=== PATIENT | male | born 1970 | race Caucasian/White ===

== ENCOUNTER 2017-10-18 16:04 | Emergency (ER) | payer MEDICAID ==
[~2017-10-18] VITALS: Ht 190.5 cm; Wt 112.0 kg
[~2017-10-18 16:04] MED LIST: HYDR-565 PO; LISI40TA4 PO; OMEP20TA5 PO; TRAZ-143 PO
[2017-10-18 16:22] LABS: BASOPHILS % (AUTO) 0.4 % (0-1); EOSINOPHILS # (AUTO) 0.1 X10'3 (0-0.9); EOSINOPHILS % (AUTO) 0.8 % (0-6); HEMOGLOBIN 16.4 g/dl (14.0-17.9); LYMPHOCYTES % (AUTO) 18.3 % (21-51); MEAN CORPUSCULAR HEMOGLOBIN 31.4 PG (27.0-31.0); MEAN CORPUSCULAR HGB CONC 34.1 % (33.0-36.5); MEAN PLATELET VOLUME 9.4 FL (7.4-10.4); MONOCYTES # (AUTO) 0.7 X10'3 (0-0.9); MONOCYTES % (AUTO) 6.7 % (2-12); NEUTROPHILS % (AUTO) 73.8 % (42-75); PLATELET COUNT 227 X10'3 (140-440); RED BLOOD COUNT 5.21 X10'6 (4.70-6.10); WHITE BLOOD COUNT 10.9 X10'3 (4.5-11.0)
[2017-10-18 16:39] LABS: ALANINE AMINOTRANSFERASE 211 U/L (12-78); ALBUMIN 4.1 G/DL (3.4-5.0); ALBUMIN/GLOBULIN RATIO 1.1 (1.1-1.5); ALKALINE PHOSPHATASE 102 IU/L (46-116); ANION GAP 11 (8-16); ASPARTATE AMINO TRANSFERASE 234 U/L (10-37); BLOOD UREA NITROGEN 17 MG/DL (7-18); BUN/CREATININE RATIO 12.8 (5.4-32.0); CALCIUM 9.1 MG/DL (8.5-10.1); CHLORIDE 104 MMOL/L (99-107); CREATININE 1.33 MG/DL (0.60-1.10); GLUCOSE 118 MG/DL (70-104); POTASSIUM 4.3 MMOL/L (3.5-5.1); SODIUM 142 MMOL/L (135-145); TOTAL CARBON DIOXIDE 27.3 MMOL/L (24-32); TOTAL PROTEIN 7.9 G/DL (6.4-8.2); eGFR 58 ML/MIN
[2017-10-18 16:42] LABS: PARTIAL THROMBOPLASTIN TIME 25 SECONDS (22-32); PROTHROMBIN TIME 10.7 SECONDS (9.0-12.0)
[2017-10-18] MEDS ORDERED: ondansetron 4mg rapidly disintigrating tab PO ONE (17:40)
[2017-10-18] MEDS ORDERED: aspirin 325mg tablet PO ONE (17:40)
[2017-10-18] MEDS ORDERED: mag hydrox/Alum hydrox/simeth 30ml oral suspension PO ONE (17:40)
[2017-10-18] MEDS ORDERED: ibuprofen tablet 400 MG TABLET PO ONE (17:40)
[2017-10-18 19:46] VITALS: BP 119/71
== END 2017-10-18 19:49 | disposition home or self-care (01) ==
LOC: ER 16:05
DX: R07.9 Chest pain, unspecified (principal); I10 Essential (primary) hypertension; G89.29 Other chronic pain; K21.9 Gastro-esophageal reflux disease without esophagitis; F17.200 Nicotine dependence, unspecified, uncomplicated; Z79.899 Other long term (current) drug therapy
CPT/HCPCS: 36415; 71045; 80053; 84484; 85025; 85610; 85730; 93005; 99285

== ENCOUNTER 2017-10-19 11:16 | Inpatient (IN) | payer MEDICAID ==
[~2017-10-19] VITALS: Ht 190.5 cm; Wt 138.6 kg
[2017-10-19] MEDS ORDERED: ondansetron 4mg rapidly disintigrating tab PO ONE (14:30)
[2017-10-19 15:09] LABS: BASOPHILS % (AUTO) 0.3 % (0-1); EOSINOPHILS # (AUTO) 0.1 X10'3 (0-0.9); HEMATOCRIT 46.4 % (42.0-52.0); LYMPHOCYTES # (AUTO) 0.5 X10'3 (1.1-4.8); LYMPHOCYTES % (AUTO) 6.5 % (21-51); MEAN CORPUSCULAR HEMOGLOBIN 31.7 PG (27.0-31.0); MEAN CORPUSCULAR HGB CONC 34.5 % (33.0-36.5); MEAN CORPUSCULAR VOLUME 91.9 FL (78-98); MEAN PLATELET VOLUME 9.2 FL (7.4-10.4); MONOCYTES # (AUTO) 0.8 X10'3 (0-0.9); NEUTROPHILS # (AUTO) 6.5 X10'3 (1.8-7.7); NEUTROPHILS % (AUTO) 82.2 % (42-75); PLATELET COUNT 227 X10'3 (140-440); RED BLOOD COUNT 5.05 X10'6 (4.70-6.10); RED CELL DISTRIBUTION WIDTH 14.1 % (11.5-14.5); WHITE BLOOD COUNT 7.9 X10'3 (4.5-11.0)
[2017-10-19 15:18] LABS: PROTHROMBIN TIME 10.6 SECONDS (9.0-12.0)
[2017-10-19 15:28] LABS: CLARITY,URINE CLEAR (Clear); COLOR,URINE YELLOW (Yellow); GLUCOSE, URINE NEGATIVE (Neg); KETONES,URINE NEGATIVE (Neg); LEUKOCYTE ESTERASE ,URINE NEGATIVE (Neg); NITRITES, URINE NEGATIVE (Neg); OCCULT BLOOD,URINE SMALL (Neg); PROTEIN,URINE NEGATIVE (Neg)
[2017-10-19 15:32] LABS: UA COLLECTION TYPE CLN CATCH MIDSTREAM
[2017-10-19 15:35] LABS: ALANINE AMINOTRANSFERASE 1363 U/L (12-78); ALBUMIN 4.1 G/DL (3.4-5.0); ALBUMIN/GLOBULIN RATIO 1.1 (1.1-1.5); ALKALINE PHOSPHATASE 158 IU/L (46-116); ANION GAP 10 (8-16); ASPARTATE AMINO TRANSFERASE 701 U/L (10-37); BILIRUBIN,TOTAL 4.9 MG/DL (0.1-1.0); BLOOD UREA NITROGEN 13 MG/DL (7-18); BUN/CREATININE RATIO 10.7 (5.4-32.0); CALCIUM 9.3 MG/DL (8.5-10.1); CHLORIDE 102 MMOL/L (99-107); CREATININE 1.22 MG/DL (0.60-1.10); ETHANOL < 0.010 GM/DL (0.0-0.010); GLUCOSE 108 MG/DL (70-104); LIPASE 551 U/L (73-393); SODIUM 139 MMOL/L (135-145); TOTAL CARBON DIOXIDE 27.3 MMOL/L (24-32); TOTAL PROTEIN 7.9 G/DL (6.4-8.2); TROPONIN I < 0.04 NG/ML (0.0-0.05); eGFR 64 ML/MIN
[2017-10-19 15:38] LABS: BACTERIA,URINE NONE SEEN /HPF (Neg); MUCUS STRANDS NONE SEEN /LPF (Neg); RBC,URINE 0-2 /HPF (0-2); SQUAMOUS EPITHELIAL CELL,UR FEW /LPF (FEW); URINE AMPHETAMINE SCREEN NEGATIVE (Neg); URINE BARBITUATE SCREEN NEGATIVE (Neg); URINE BENZODIAZEPINES SCREEN NEGATIVE (Neg); URINE CANNABINOID SCREEN NEGATIVE (Neg); URINE COCAINE SCREEN NEGATIVE (Neg); URINE METHADONE SCREEN NEGATIVE (Neg); URINE OPIATE SCREEN NEGATIVE (Neg); URINE PHENCYCLIDINE SCREEN NEGATIVE (Neg); WBC,URINE NONE SEEN /HPF (0-4)
[2017-10-19] MEDS ORDERED: normal saline 1000ML IV soln IVB ONE (15:50)
[2017-10-19 16:38] LABS: ACETAMINOPHEN < 2.0 UG/ML (10-30)
[2017-10-19] MEDS ORDERED: iohexol 350MG/ML 100ml bottle IV ONE (17:12)
[2017-10-19] MEDS ORDERED: potassium Cl 40MEQ/NS 500ml 500 ML IV PRN ×2 (19:45)
[2017-10-19] MEDS ORDERED: potassium Cl 20 mEq SR tablet PO PRN ×2 (19:45)
[2017-10-19] MEDS: normal saline 1000ml 1,000 ML IV SCH (20:25)
[2017-10-19] MEDS: ondansetron/PF 4mg/2ml inj IV PRN (20:25)
[2017-10-19] MEDS: morphine 4 MG/ML inj SYRINge IV PRN (20:34)
[2017-10-20] MEDS: morphine 4 MG/ML inj SYRINge IV PRN (04:14)
[2017-10-20] MEDS: ondansetron/PF 4mg/2ml inj IV PRN (04:14)
[2017-10-20] MEDS: normal saline 1000ml 1,000 ML IV SCH ×3 (05:41→22:29)
[2017-10-20 06:39] LABS: BASOPHILS % (AUTO) 0.2 % (0-1); EOSINOPHILS # (AUTO) 0.2 X10'3 (0-0.9); EOSINOPHILS % (AUTO) 2.4 % (0-6); HEMOGLOBIN 15.4 g/dl (14.0-17.9); LYMPHOCYTES # (AUTO) 0.6 X10'3 (1.1-4.8); LYMPHOCYTES % (AUTO) 8.8 % (21-51); MEAN CORPUSCULAR HEMOGLOBIN 32.4 PG (27.0-31.0); MEAN CORPUSCULAR VOLUME 92.6 FL (78-98); MEAN PLATELET VOLUME 9.8 FL (7.4-10.4); MONOCYTES # (AUTO) 0.9 X10'3 (0-0.9); MONOCYTES % (AUTO) 13.5 % (2-12); NEUTROPHILS # (AUTO) 4.9 X10'3 (1.8-7.7); NEUTROPHILS % (AUTO) 75.1 % (42-75); PLATELET COUNT 198 X10'3 (140-440); RED BLOOD COUNT 4.75 X10'6 (4.70-6.10); WHITE BLOOD COUNT 6.6 X10'3 (4.5-11.0)
[2017-10-20 06:51] LABS: INR 1.1 INR; PROTHROMBIN TIME 11.4 SECONDS (9.0-12.0)
[2017-10-20 07:03] LABS: ALANINE AMINOTRANSFERASE 960 U/L (12-78); ALBUMIN 3.4 G/DL (3.4-5.0); ALKALINE PHOSPHATASE 155 IU/L (46-116); ANION GAP 8 (8-16); ASPARTATE AMINO TRANSFERASE 379 U/L (10-37); BILIRUBIN,TOTAL 5.3 MG/DL (0.1-1.0); BLOOD UREA NITROGEN 9 MG/DL (7-18); BUN/CREATININE RATIO 6.6 (5.4-32.0); CALCIUM 8.7 MG/DL (8.5-10.1); CHLORIDE 105 MMOL/L (99-107); CREATININE 1.36 MG/DL (0.60-1.10); GLUCOSE 101 MG/DL (70-104); POTASSIUM 4.3 MMOL/L (3.5-5.1); SODIUM 142 MMOL/L (135-145); TOTAL CARBON DIOXIDE 29.3 MMOL/L (24-32); eGFR 57 ML/MIN
[2017-10-20 07:06] LABS: TOTAL PROTEIN 6.8 G/DL (6.4-8.2)
[2017-10-20] MEDS: K and/or MAG REPLACEMENT MC SCH (07:41)
[2017-10-20] MEDS: enoxaparin 40mg/0.4ml syringe SUBCUT SCH (07:47)
[2017-10-20] MEDS ORDERED: ALBU18HF2 (08:28)
[2017-10-20] MEDS ORDERED: traMADol 50MG tablet PO ONE (13:30)
[2017-10-20] MEDS ORDERED: traZODone 50mg tablet PO SCH (21:00)
[2017-10-21] VITALS: BP 141/82
[2017-10-21 06:02] LABS: BASOPHILS % (AUTO) 0.4 % (0-1); EOSINOPHILS # (AUTO) 0.2 X10'3 (0-0.9); EOSINOPHILS % (AUTO) 3.4 % (0-6); HEMATOCRIT 41.1 % (42.0-52.0); HEMOGLOBIN 14.3 g/dl (14.0-17.9); LYMPHOCYTES # (AUTO) 1.3 X10'3 (1.1-4.8); MEAN CORPUSCULAR HEMOGLOBIN 32.1 PG (27.0-31.0); MEAN CORPUSCULAR HGB CONC 34.7 % (33.0-36.5); MEAN CORPUSCULAR VOLUME 92.6 FL (78-98); MEAN PLATELET VOLUME 9.7 FL (7.4-10.4); MONOCYTES # (AUTO) 0.8 X10'3 (0-0.9); MONOCYTES % (AUTO) 13.5 % (2-12); NEUTROPHILS # (AUTO) 3.3 X10'3 (1.8-7.7); NEUTROPHILS % (AUTO) 58.7 % (42-75); PLATELET COUNT 188 X10'3 (140-440); RED BLOOD COUNT 4.44 X10'6 (4.70-6.10); RED CELL DISTRIBUTION WIDTH 14.2 % (11.5-14.5); WHITE BLOOD COUNT 5.6 X10'3 (4.5-11.0)
[2017-10-21 06:15] LABS: PROTHROMBIN TIME 10.8 SECONDS (9.0-12.0)
[2017-10-21 06:21] LABS: ALANINE AMINOTRANSFERASE 720 U/L (12-78); ALBUMIN 3.2 G/DL (3.4-5.0); ALBUMIN/GLOBULIN RATIO 0.9 (1.1-1.5); ALKALINE PHOSPHATASE 149 IU/L (46-116); ANION GAP 8 (8-16); ASPARTATE AMINO TRANSFERASE 193 U/L (10-37); BILIRUBIN,TOTAL 1.8 MG/DL (0.1-1.0); BLOOD UREA NITROGEN 9 MG/DL (7-18); BUN/CREATININE RATIO 8.2 (5.4-32.0); CALCIUM 8.6 MG/DL (8.5-10.1); CHLORIDE 106 MMOL/L (99-107); GLUCOSE 88 MG/DL (70-104); POTASSIUM 3.9 MMOL/L (3.5-5.1); SODIUM 141 MMOL/L (135-145); TOTAL CARBON DIOXIDE 26.6 MMOL/L (24-32); TOTAL PROTEIN 6.6 G/DL (6.4-8.2); eGFR 72 ML/MIN
[2017-10-21 07:00] VITALS: BP 120/67
[2017-10-21] MEDS: K and/or MAG REPLACEMENT MC SCH (08:00)
[2017-10-21] MEDS: pantoprazole 40mg Tablet.DR PO SCH (08:48)
[2017-10-21] MEDS: enoxaparin 40mg/0.4ml syringe SUBCUT SCH (08:49)
[2017-10-21] MEDS: normal saline 1000ml 1,000 ML IV SCH ×2 (08:59→20:07)
[2017-10-21 12:00] VITALS: BP 129/75
[2017-10-21] MEDS ORDERED: HYDROmorphone 2mg tablet PO PRN (19:15)
[2017-10-21] MEDS ORDERED: morphine 4 MG/ML inj SYRINge IV PRN (19:25)
[2017-10-21 20:00] VITALS: BP 137/70
[2017-10-21 23:00] VITALS: BP 138/81
[2017-10-21] MEDS ORDERED: HYDROmorphone 1 mg/ml syringe IV PRN (23:00)
[2017-10-21] MEDS ORDERED: HYDROmorphone inj. 0.5 MG/0.5 ML DISP.SYRIN IV PRN (23:00)
[2017-10-22] MEDS ORDERED: HYDROmorphone inj. 0.5 MG/0.5 ML DISP.SYRIN ONE ×4 (01:57→23:10)
[2017-10-22] MEDS: normal saline 1000ml 1,000 ML IV SCH ×2 (06:04→17:59)
[2017-10-22 06:08] LABS: BASOPHILS % (AUTO) 0.4 % (0-1); EOSINOPHILS # (AUTO) 0.2 X10'3 (0-0.9); EOSINOPHILS % (AUTO) 3.4 % (0-6); HEMATOCRIT 40.3 % (42.0-52.0); HEMOGLOBIN 13.9 g/dl (14.0-17.9); LYMPHOCYTES # (AUTO) 1.8 X10'3 (1.1-4.8); LYMPHOCYTES % (AUTO) 28.1 % (21-51); MEAN CORPUSCULAR HGB CONC 34.6 % (33.0-36.5); MEAN CORPUSCULAR VOLUME 92.4 FL (78-98); MEAN PLATELET VOLUME 9.6 FL (7.4-10.4); MONOCYTES # (AUTO) 0.8 X10'3 (0-0.9); MONOCYTES % (AUTO) 11.8 % (2-12); NEUTROPHILS # (AUTO) 3.6 X10'3 (1.8-7.7); NEUTROPHILS % (AUTO) 56.3 % (42-75); PLATELET COUNT 198 X10'3 (140-440); RED BLOOD COUNT 4.36 X10'6 (4.70-6.10); WHITE BLOOD COUNT 6.4 X10'3 (4.5-11.0)
[2017-10-22 06:12] LABS: PROTHROMBIN TIME 10.8 SECONDS (9.0-12.0)
[2017-10-22 06:31] LABS: ALANINE AMINOTRANSFERASE 485 U/L (12-78); ALBUMIN 3.2 G/DL (3.4-5.0); ALBUMIN/GLOBULIN RATIO 0.9 (1.1-1.5); ALKALINE PHOSPHATASE 136 IU/L (46-116); ANION GAP 10 (8-16); ASPARTATE AMINO TRANSFERASE 106 U/L (10-37); BILIRUBIN,TOTAL 1.2 MG/DL (0.1-1.0); BLOOD UREA NITROGEN 10 MG/DL (7-18); BUN/CREATININE RATIO 8.7 (5.4-32.0); CALCIUM 8.7 MG/DL (8.5-10.1); CHLORIDE 107 MMOL/L (99-107); CREATININE 1.15 MG/DL (0.60-1.10); GLUCOSE 87 MG/DL (70-104); POTASSIUM 3.7 MMOL/L (3.5-5.1); SODIUM 143 MMOL/L (135-145); TOTAL PROTEIN 6.6 G/DL (6.4-8.2); eGFR 69 ML/MIN
[2017-10-22] MEDS: K and/or MAG REPLACEMENT MC SCH (07:54)
[2017-10-22 07:56] VITALS: BP 119/70
[2017-10-22] MEDS: enoxaparin 40mg/0.4ml syringe SUBCUT SCH (08:00)
[2017-10-22] MEDS: pantoprazole 40mg Tablet.DR PO SCH (08:00)
[2017-10-22 09:54] LABS: LIPASE < 50 U/L (73-393)
[2017-10-22 11:41] VITALS: BP 110/70
[2017-10-22] MEDS ORDERED: HYDROcodone/acetaminophen 10/325mg tab PO PRN (16:00)
[2017-10-22 18:00] VITALS: BP 132/92
[2017-10-22 23:30] VITALS: BP 138/75
[2017-10-23] VITALS (17 sets, daily range): BP systolic 12–140; BP diastolic 64–89
[2017-10-23] MEDS ORDERED: HYDROmorphone inj. 0.5 MG/0.5 ML DISP.SYRIN ONE ×3 (03:37→22:23)
[2017-10-23] MEDS: normal saline 1000ml 1,000 ML IV SCH ×3 (03:40→23:41)
[2017-10-23] MEDS ORDERED: acetaminophen 325mg tablet PO PRN (03:55)
[2017-10-23 05:25] LABS: HBSAG SCREEN Negative (Negative); HEP A AB, IGM Negative (Negative); HEP B CORE AB, IGM Negative (Negative); HEPATITIS C ANTIBODY <0.1 s/co ratio (0.0-0.9)
[2017-10-23 06:31] LABS: BASOPHILS % (AUTO) 0.6 % (0-1); EOSINOPHILS # (AUTO) 0.2 X10'3 (0-0.9); EOSINOPHILS % (AUTO) 3.6 % (0-6); HEMATOCRIT 39.3 % (42.0-52.0); HEMOGLOBIN 13.5 g/dl (14.0-17.9); LYMPHOCYTES # (AUTO) 2.3 X10'3 (1.1-4.8); MEAN CORPUSCULAR HEMOGLOBIN 32.1 PG (27.0-31.0); MEAN CORPUSCULAR HGB CONC 34.5 % (33.0-36.5); MEAN CORPUSCULAR VOLUME 93.3 FL (78-98); MEAN PLATELET VOLUME 9.6 FL (7.4-10.4); MONOCYTES # (AUTO) 0.8 X10'3 (0-0.9); MONOCYTES % (AUTO) 12.1 % (2-12); NEUTROPHILS # (AUTO) 3.1 X10'3 (1.8-7.7); NEUTROPHILS % (AUTO) 47.7 % (42-75); PLATELET COUNT 199 X10'3 (140-440); RED BLOOD COUNT 4.21 X10'6 (4.70-6.10); WHITE BLOOD COUNT 6.5 X10'3 (4.5-11.0)
[2017-10-23 06:37] LABS: PROTHROMBIN TIME 10.8 SECONDS (9.0-12.0)
[2017-10-23 06:49] LABS: ALANINE AMINOTRANSFERASE 374 U/L (12-78); ALBUMIN 3.2 G/DL (3.4-5.0); ALKALINE PHOSPHATASE 121 IU/L (46-116); ANION GAP 8 (8-16); ASPARTATE AMINO TRANSFERASE 69 U/L (10-37); BLOOD UREA NITROGEN 8 MG/DL (7-18); BUN/CREATININE RATIO 6.2 (5.4-32.0); CALCIUM 8.7 MG/DL (8.5-10.1); CHLORIDE 106 MMOL/L (99-107); GLUCOSE 87 MG/DL (70-104); POTASSIUM 3.5 MMOL/L (3.5-5.1); SODIUM 143 MMOL/L (135-145); TOTAL CARBON DIOXIDE 29.2 MMOL/L (24-32); TOTAL PROTEIN 6.3 G/DL (6.4-8.2); eGFR 60 ML/MIN
[2017-10-23] MEDS: enoxaparin 40mg/0.4ml syringe SUBCUT SCH (07:41)
[2017-10-23] MEDS: K and/or MAG REPLACEMENT MC SCH (08:00)
[2017-10-23] MEDS: pantoprazole 40mg Tablet.DR PO SCH (08:46)
[2017-10-23] MEDS ORDERED: LIDOcaine 1% 30ml preserv. free vial ONE (13:56)
[2017-10-23] MEDS ORDERED: BUPIVAcaine/PF 2.5 mg/ml (0.25%) 30ml vial ONE (13:56)
[2017-10-23] MEDS ORDERED: sevoflurane 250ml liquid IH ONE (15:20)
[2017-10-23] MEDS ORDERED: ringers solution, lacted 1,000 ML IV SCH (15:29)
[2017-10-23] MEDS ORDERED: morphine 4 MG/ML inj SYRINge IV PRN ×2 (15:30)
[2017-10-23] MEDS ORDERED: meperidine/PF 50mg/ml syringe IV PRN ×3 (15:30)
[2017-10-23] MEDS ORDERED: ondansetron/PF 4mg/2ml inj IV PRN (15:30)
[2017-10-23] MEDS ORDERED: proCHLORperazine 10 MG/2 ml inj IV PRN (15:30)
[2017-10-23] MEDS ORDERED: midazolam 2 mg/2 ml injection ONE (15:39)
[2017-10-23] MEDS ORDERED: fentaNYL /PF 50mcg/ml 5ml ampule ONE (15:42)
[2017-10-23] MEDS ORDERED: rocuronium 10mg/ml inj IV ONE (15:43)
[2017-10-23] MEDS ORDERED: dexamethasone sod phosphate 4mg/ml inj. ONE (15:43)
[2017-10-23] MEDS ORDERED: propofol inj 20 ML IV ONE ×2 (15:43→15:56)
[2017-10-23] MEDS ORDERED: LIDOcaine 2% (20mg/ml) 5ml vial ONE (15:43)
[2017-10-23] MEDS ORDERED: glycopyrrolate 0.2mg/ml inj ONE (16:55)
[2017-10-23] MEDS ORDERED: ketorolac trometh. 30mg/ml inj. ONE (17:00)
[2017-10-23] MEDS ORDERED: HYDROcodone/acetaminophen 10/325mg tab PO PRN (17:35)
[2017-10-23] MEDS ORDERED: HYDROcodone/acetaminophen 5mg/325mg tablet PO PRN (17:35)
[2017-10-23] MEDS ORDERED: traZODone 50mg tablet PO PRN (22:10)
[2017-10-24] MEDS ORDERED: HYDROmorphone 2mg tablet PO ONE (03:00)
[2017-10-24 05:58] LABS: BASOPHILS % (AUTO) 0.2 % (0-1); EOSINOPHILS # (AUTO) 0.1 X10'3 (0-0.9); EOSINOPHILS % (AUTO) 0.9 % (0-6); HEMATOCRIT 40.9 % (42.0-52.0); HEMOGLOBIN 14.5 g/dl (14.0-17.9); LYMPHOCYTES # (AUTO) 1.6 X10'3 (1.1-4.8); LYMPHOCYTES % (AUTO) 14.9 % (21-51); MEAN CORPUSCULAR HEMOGLOBIN 32.2 PG (27.0-31.0); MEAN CORPUSCULAR HGB CONC 35.4 % (33.0-36.5); MEAN PLATELET VOLUME 9.9 FL (7.4-10.4); MONOCYTES # (AUTO) 0.9 X10'3 (0-0.9); NEUTROPHILS # (AUTO) 8.2 X10'3 (1.8-7.7); PLATELET COUNT 215 X10'3 (140-440); RED BLOOD COUNT 4.49 X10'6 (4.70-6.10); RED CELL DISTRIBUTION WIDTH 13.6 % (11.5-14.5); WHITE BLOOD COUNT 10.8 X10'3 (4.5-11.0)
[2017-10-24 06:14] LABS: INR 1.1 INR
[2017-10-24 06:23] LABS: ALANINE AMINOTRANSFERASE 362 U/L (12-78); ALBUMIN 3.2 G/DL (3.4-5.0); ALKALINE PHOSPHATASE 123 IU/L (46-116); ANION GAP 10 (8-16); ASPARTATE AMINO TRANSFERASE 108 U/L (10-37); BILIRUBIN,TOTAL 0.8 MG/DL (0.1-1.0); BLOOD UREA NITROGEN 8 MG/DL (7-18); BUN/CREATININE RATIO 6.5 (5.4-32.0); CALCIUM 8.9 MG/DL (8.5-10.1); CHLORIDE 108 MMOL/L (99-107); CREATININE 1.23 MG/DL (0.60-1.10); GLUCOSE 136 MG/DL (70-104); SODIUM 143 MMOL/L (135-145); TOTAL CARBON DIOXIDE 25.3 MMOL/L (24-32); TOTAL PROTEIN 6.5 G/DL (6.4-8.2); eGFR 64 ML/MIN
[2017-10-24 08:00] VITALS: BP 124/73
[2017-10-24] MEDS: K and/or MAG REPLACEMENT MC SCH (08:00)
[2017-10-24] MEDS: pantoprazole 40mg Tablet.DR PO SCH (08:49)
[2017-10-24] MEDS: enoxaparin 40mg/0.4ml syringe SUBCUT SCH (09:00)
[2017-10-24] MEDS: normal saline 1000ml 1,000 ML IV SCH (10:19)
[2017-10-25 11:21] VITALS: BP 152/78
== END 2017-10-24 12:10 | disposition home or self-care (01) | DRG 263 ==
LOC: ER 11:16 → ED HOLD 19:41 → MED 3N 10-20 22:18 → PACU 10-23 15:20 → MED 3N 10-23 17:41
PROVIDERS: ADMIT Family Medicine; ATTEND Surgery
PROC: BW211ZZ Computerized Tomography (CT Scan) of Abdomen and Pelvis using Low Osmolar Contrast (ICD-10-PCS; 2017-10-19)
PROC: 5A09357 Assistance with Respiratory Ventilation, Less than 24 Consecutive Hours, Continuous Positive Airway Pressure (ICD-10-PCS; 2017-10-20)
PROC: 5A09357 Assistance with Respiratory Ventilation, Less than 24 Consecutive Hours, Continuous Positive Airway Pressure (ICD-10-PCS; 2017-10-21)
PROC: 5A09357 Assistance with Respiratory Ventilation, Less than 24 Consecutive Hours, Continuous Positive Airway Pressure (ICD-10-PCS; 2017-10-22)
PROC: 5A09357 Assistance with Respiratory Ventilation, Less than 24 Consecutive Hours, Continuous Positive Airway Pressure (ICD-10-PCS; 2017-10-23)
PROC: 0FT44ZZ Resection of Gallbladder, Percutaneous Endoscopic Approach (ICD-10-PCS; principal; 2017-10-23 15:30)
PROC: 5A09357 Assistance with Respiratory Ventilation, Less than 24 Consecutive Hours, Continuous Positive Airway Pressure (ICD-10-PCS; 2017-10-24)
DX: K85.10 Biliary acute pancreatitis without necrosis or infection (principal); I10 Essential (primary) hypertension; K21.9 Gastro-esophageal reflux disease without esophagitis; J45.909 Unspecified asthma, uncomplicated; G89.29 Other chronic pain; K80.20 Calculus of gallbladder without cholecystitis without obstruction; Z82.49 Family history of ischemic heart disease and other diseases of the circulatory system; Z83.3 Family history of diabetes mellitus; Z87.891 Personal history of nicotine dependence
CPT/HCPCS: 36415; 74174; 74181; 76700; 80053; 80074; 80305; 80320; 80329; 81001; 83605; 83690; 84484; 85025; 85610; 87070; 94660; 94760; 96360; 99285; A7000; J1100; J1170; J1650; J1885; J2001; J2250; J2270; J2405; J2704; J3010; J3490; J7030; J7120; Q9967

== ENCOUNTER 2022-09-25 05:13 | Day surgery (SDC) | payer MEDICAID ==
[2022-09-20 16:58] LABS: BASOPHILS % (AUTO) 0.5 % (0-1); EOSINOPHILS # (AUTO) 0.2 X10'3 (0-0.9); EOSINOPHILS % (AUTO) 2.6 % (0-6); LYMPHOCYTES # (AUTO) 2.9 X10'3 (1.1-4.8); LYMPHOCYTES % (AUTO) 33.9 % (21-51); MEAN CORPUSCULAR HEMOGLOBIN 30.8 PG (27.0-31.0); MEAN CORPUSCULAR HGB CONC 34.1 g/dL (33.0-36.5); MEAN CORPUSCULAR VOLUME 90.2 FL (78-98); MEAN PLATELET VOLUME 8.8 FL (7.4-10.4); MONOCYTES # (AUTO) 0.9 X10'3 (0-0.9); MONOCYTES % (AUTO) 11.2 % (2-12); NEUTROPHILS # (AUTO) 4.4 X10'3 (1.8-7.7); NEUTROPHILS % (AUTO) 51.8 % (42-75); PRE OP HEMATOCRIT 43.6 % (42.0-52.0); PRE OP HEMOGLOBIN 14.9 g/dL (14.0-17.9); PRE OP PLATELET COUNT 313 X10'3 (140-440); RED BLOOD COUNT 4.83 X10'6 (4.70-6.10); RED CELL DISTRIBUTION WIDTH 14.3 % (11.5-14.5)
[2022-09-20 17:22] LABS: ALBUMIN 4.1 G/DL (3.4-5.0); ALKALINE PHOSPHATASE 92 IU/L (46-116); BLOOD UREA NITROGEN 23 MG/DL (7-18); BUN/CREATININE RATIO 17.6 (5.4-32.0); CALCIUM 8.9 MG/DL (8.5-10.1); CHLORIDE 104 MMOL/L (99-107); CREATININE 1.31 MG/DL (0.60-1.10); PRE OP ALT 52 U/L (30-65); PRE OP ANION GAP 8 (8-16); PRE OP AST 36 U/L (10-37); PRE OP BILIRUB, TOTAL 0.4 MG/DL (0.0-1.0); PRE OP GLUCOSE 116 MG/DL (70-104); PRE OP POTASSIUM 4.1 MMOL/L (3.4-5.1); PRE OP SODIUM 137 MMOL/L (135-145); TOTAL CARBON DIOXIDE 24.6 MMOL/L (24-32); TOTAL PROTEIN 8.2 G/DL (6.4-8.2); eGFR 58 ML/MIN
[~2022-09-25] VITALS: Ht 188 cm; Wt 166.1 kg
[2022-09-25] VITALS (8 sets, daily range): BP systolic 124–142; BP diastolic 72–79
[~2022-09-25 05:13] MED LIST changes: +CYCL-1 PO; +DICL100T85 PO; +DOXE10CA3 PO; +FLUT15.815 BOTHNARES; +FLUTIC INH; +HYDR-4353 PO; -HYDR-565 PO; +HYDR50TA65 PO; -LISI40TA4 PO; +OMEP20TA43 PO; -OMEP20TA5 PO; +PRAZ2CAP2 PO; -TRAZ-143 PO; +VENL150C58 PO; +[UNRECOGNIZED DRUG - OTHER] INH; +ringers solution, lacted 1,000 ML IV SCH
[2022-09-25] MEDS ORDERED: albuterol 2.5 MG/3 ML nebule NEB ONE (05:30)
[2022-09-25] MEDS ORDERED: famotidine 20mg tablet PO ONE (05:30)
[2022-09-25] MEDS ORDERED: cefazolin 2gm/D5W 100mL 100 ML IV ONE (05:30)
[2022-09-25] MEDS ORDERED: ceFAZolin inj. 3,000 MG in normal saline 100ml IV soln 100 ML IV ONE (05:30)
[2022-09-25] MEDS ORDERED: LIDOcaine 1% (10mg/ml) 2ml vial ONE (05:43)
[2022-09-25] MEDS ORDERED: LISI40TA13 PO (06:02)
[2022-09-25] MEDS ORDERED: LIDOcaine 1% W/epiNEPHrine 1:100,000 20ml vial ONE ×2 (06:49→07:21)
[2022-09-25] MEDS ORDERED: BUPIVAcaine/PF 2.5 mg/ml (0.25%) 30ml vial ONE (06:49)
[2022-09-25] MEDS ORDERED: BUPIVAcaine 0.5% inj/PF 30 ML ONE (07:19)
[2022-09-25] MEDS ORDERED: LIDOcaine 1% 30ml preserv. free vial ONE (07:19)
[2022-09-25] MEDS ORDERED: morphine 10mg/ml inj. ONE (07:22)
[2022-09-25] MEDS ORDERED: midazolam 1 mg/ML 2ml injection ONE (07:24)
[2022-09-25] MEDS ORDERED: fentaNYL/PF 50MCG/1 ML 2ML syringe ONE (07:24)
[2022-09-25] MEDS ORDERED: proCHLORperazine 10 MG/2 ml inj IV PRN (08:10)
[2022-09-25] MEDS ORDERED: meperidine/PF 25mg/ml syringe IV PRN ×3 (08:10)
[2022-09-25] MEDS ORDERED: morphine 2 MG/ML inj. syringe IV PRN (08:10)
[2022-09-25] MEDS ORDERED: ringers solution, lacted 1,000 ML IV SCH (08:10)
[2022-09-25] MEDS ORDERED: ondansetron/PF 4mg/2ml inj IV PRN (08:10)
[2022-09-25] MEDS ORDERED: morphine 4 MG/ML inj SYRINge IV PRN (08:10)
--- NOTE | 2022-09-25 08:17 | NUR ---
Received from OR via [facility] IN STABLE CONDITION , accompanied by Anesthesiologist and MERCHANDISE PRESENTATION ASSOCIATE report given by MERCHANDISE PRESENTATION ASSOCIATE AND Anesthesiolgist. Addendum: 09/25/22 at 0927 by Suze Hand RN Amended: Links added.
[2022-09-25] MEDS ORDERED: HYDROcodone/acetaminophen 10/325mg tab PO PRN (08:35)
--- NOTE | 2022-09-25 09:27 | NUR ---
I HAVE REVIEWED D/C INSTRUCTIONS WITH PATIENT INSTRUCTIONS WITH PATIENT AND THEY HAVE VERBALIZED UNDERSTANDING. PATIENT D/C HOME WITH ALL BELONGINGS AND FAMILY TRANSPORTED PATIENT HOME. Addendum: 09/25/22 at 0942 by Suze Hand RN Amended: Links added.
== END 2022-09-25 09:27 | disposition home or self-care (01) ==
LOC: PAS 05:13
PROVIDERS: ATTEND Orthopaedic Surgery
DX: S83.282A Other tear of lateral meniscus, current injury, left knee, initial encounter (principal); M94.262 Chondromalacia, left knee; M67.52 Plica syndrome, left knee; F41.9 Anxiety disorder, unspecified; G89.4 Chronic pain syndrome; I10 Essential (primary) hypertension; K21.9 Gastro-esophageal reflux disease without esophagitis; F32.89 Other specified depressive episodes; M17.0 Bilateral primary osteoarthritis of knee; J45.909 Unspecified asthma, uncomplicated; G43.909 Migraine, unspecified, not intractable, without status migrainosus; G35 Multiple sclerosis; G47.30 Sleep apnea, unspecified; F43.10 Post-traumatic stress disorder, unspecified; G62.9 Polyneuropathy, unspecified; E66.01 Morbid (severe) obesity due to excess calories; Z68.42 Body mass index [BMI] 45.0-49.9, adult; Z88.1 Allergy status to other antibiotic agents; Z91.048 Other nonmedicinal substance allergy status; Z79.899 Other long term (current) drug therapy; F11.20 Opioid dependence, uncomplicated; Z98.890 Other specified postprocedural states; Z72.89 Other problems related to lifestyle; Z87.891 Personal history of nicotine dependence; Z82.49 Family history of ischemic heart disease and other diseases of the circulatory system; X58.XXXA Exposure to other specified factors, initial encounter; Y93.89 Activity, other specified; Y92.89 Other specified places as the place of occurrence of the external cause; Y99.8 Other external cause status
CPT/HCPCS: 29881; 36415; 80053; 82948; 85025; J0690; J2250; J2274; J3010; J3490; J7120; S0020; Z7506; Z7512; A4215; A4615; A4618; A6449; A7000